=== PATIENT | male | born 1960 | race Caucasian/White ===

== ENCOUNTER 2018-02-23 10:30 | Observation (INO) ==
[2018-02-23 10:59] LABS: Bilirubin,Urine Negative (Negative); Blood,Urine Moderate (Negative); Clarity,Urine Clear (Clear); Color,Urine Yellow (Yellow); Glucose,Urine (UA) 250 mg/dL (Normal); Ketones,Urine Negative (Negative); Leukocyte Esterase,Urine Negative (Negative); Nitrite,Urine Negative (Negative); Protein,Urine Trace mg/dL (Neg-Trace); Specific Gravity,Urine 1.024 (1.010-1.025); Urobilinogen,Urine Normal (Normal)
[2018-02-23 11:03] LABS: Bacteria,Urine None Seen per hpf (None-Few); Hyaline Casts,Urine None Seen per lpf (None-Few); RBC,Urine 50-100 per hpf (0-3); Squamous Epithelial Cell,Urine Few per lpf (None-Few); WBC,Urine 0-3 per hpf (0-3)
[2018-02-23 11:09] LABS: Basophils # 0.1 K/mcL (0.0-0.2); Basophils % 0.5 %; Eosinophils % 0.2 %; Hematocrit 53.3 % (37.5-50.1); Hemoglobin 18.2 g/dL (12.9-16.9); Immature Granulocytes % 0.5 % (0-4); Lymphocytes # 1.6 K/mcL (0.6-4.6); Lymphocytes % 10.6 %; Mean Corpuscular HGB Conc 34.1 g/dL (31.6-35.5); Mean Corpuscular Hemoglobin 31.8 pg (28.0-33.3); Mean Platelet Volume 9.5 fL (9.4-12.4); Monocytes # 1.5 K/mcL (0.0-1.3); Monocytes % 10.4 %; Neutrophils # 11.5 K/mcL (1.6-8.9); Platelet Count 261 K/mcL (140-400); Red Blood Count 5.73 M/mcL (4.19-5.50); Red Cell Distribution Width 13.3 % (11.5-14.5); Segmented Neutrophils % 77.8 %
[2018-02-23 11:26] LABS: Alanine Aminotransferase 23 Units/L (7-52); Albumin 4.2 g/dL (3.5-5.7); Albumin/Globulin Ratio 1.6 (1.1-2.2); Alkaline Phosphatase 84 Units/L (34-104); Aspartate Amino Transferase 22 Units/L (13-39); BUN/Creatinine Ratio 11 (6-26); Bilirubin,Direct 0.1 mg/dL (0.0-0.2); Bilirubin,Indirect 0.7 mg/dL (0.0-1.2); Bilirubin,Total 0.8 mg/dL (0.3-1.0); Blood Urea Nitrogen 16 mg/dL (6-20); Calcium 9.2 mg/dL (8.6-10.3); Carbon Dioxide 25 mEq/L (23-29); Chloride 100 mEq/L (98-107); Globulin 2.6 g/dL (2.4-3.5); Glucose 150 mg/dL (70-105); Lipase 38 Units/L (11-82); Osmolality,Calculated 280 (280-300); Potassium 4.3 mEq/L (3.5-5.1); Sodium 133 mEq/L (136-145); Total Protein 6.8 g/dL (6.4-8.9); eGFR For African Americans > 60 (> 60); eGFR For Non-African Americans 51 (> 60)
[2018-02-23] MEDS ORDERED: Ondansetron 4 MG/2 ML VIAL IVP ONE (12:14)
[2018-02-23] MEDS ORDERED: Ketorolac 15 MG/ML VIAL IVP ONE (12:14)
[2018-02-23] MEDS ORDERED: *HR* FentaNYL (PF) 100 MCG/2 ML VIAL IVP ONE ×2 (12:15→12:51)
--- NOTE | 2018-02-23 12:16 | Emergency Department Note ---
Disposition Clinical Impression: Kidney stone Disposition: Admitted As Inpatient Condition: Good General Adult HPI - General Chief complaint: ED Abdominal Pain Stated complaint: LLQ Pain Time Seen by Provider: 02/23/18 12:10 Source: patient Limitations: no limitations - History of Present Illness Pain Scale: 6 - Related Data Home Medications Medication Instructions Recorded Confirmed Losartan Potassium [Cozaar] 50 mg PO DAILY 02/23/18 02/23/18 Allergies Allergy/AdvReac Type Severity Reaction Status Date / Time No Known Allergies Allergy Verified 02/23/18 10:35 Past Medical History - Past Medical History Medical history: Reports: hypertension, kidney stones Psychiatric history: Reports: no psych history - Social History Smoking Status: Former smoker Smokeless Tobacco Status: Yes Alcohol use: Reports: none, occasionally Drug use: Reports: none Physical Exam - General Limitations: no limitations General appearance: alert, in no apparent distress Course Vital Signs Temperature 98.5 F 02/23/18 10:32 Pulse Rate 73 02/23/18 10:32 Respiratory Rate 18 02/23/18 10:32 Blood Pressure 155/89 02/23/18 10:32 O2 Sat by Pulse Oximetry 98 02/23/18 10:32 Temperature 98.1 F 02/23/18 15:30 Pulse Rate 67 02/23/18 15:30 Respiratory Rate 18 02/23/18 15:30 Blood Pressure 136/71 02/23/18 15:30 O2 Sat by Pulse Oximetry 99 02/23/18 15:30 Oxygen Delivery Oxygen Delivery Room Air Medical Decision Making - Lab Data Result diagrams: 02/23/18 10:52 02/23/18 10:52 Lab Results 02/23/18 02/23/18 02/23/18 Range/Units 10:40 10:52 10:52 WBC 14.8 H (4.3-11.1) K/mcL RBC 5.73 H (4.19-5.50) M/mcL Hgb 18.2 H (12.9-16.9) g/dL Hct 53.3 H (37.5-50.1) % MCV 93.0 (83.0-100.0) fL MCH 31.8 (28.0-33.3) pg MCHC 34.1 (31.6-35.5) g/dL RDW 13.3 (11.5-14.5) % Plt Count 261 (140-400) K/mcL MPV 9.5 (9.4-12.4) fL Immature Gran % 0.5 (0-4) % Seg Neutrophils % 77.8 % Lymphocytes % 10.6 % Monocytes % 10.4 % Eosinophils % 0.2 % Basophils % 0.5 % Neutrophils # 11.5 H (1.6-8.9) K/mcL Lymphocytes # 1.6 (0.6-4.6) K/mcL Monocytes # 1.5 H (0.0-1.3) K/mcL Eosinophils # 0.0 (0.0-0.6) K/mcL Basophils # 0.1 (0.0-0.2) K/mcL Sodium 133 L (136-145) mEq/L Potassium 4.3 (3.5-5.1) mEq/L Chloride 100 (98-107) mEq/L Carbon Dioxide 25 (23-29) mEq/L BUN 16 (6-20) mg/dL Creatinine 1.41 H (0.70-1.30) mg/dL Est GFR ( Amer) > 60 (> 60) Est GFR (Non-Af Amer) 51 L (> 60) BUN/Creatinine Ratio 11 (6-26) Glucose 150 H (70-105) mg/dL Calculated Osmolality 280 (280-300) Calcium 9.2 (8.6-10.3) mg/dL Total Bilirubin 0.8 (0.3-1.0) mg/dL Direct Bilirubin 0.1 (0.0-0.2) mg/dL Indirect Bilirubin 0.7 (0.0-1.2) mg/dL AST 22 (13-39) Units/L ALT 23 (7-52) Units/L Alkaline Phosphatase 84 (34-104) Units/L Serum Total Protein 6.8 (6.4-8.9) g/dL Albumin 4.2 (3.5-5.7) g/dL Globulin 2.6 (2.4-3.5) g/dL Albumin/Globulin Ratio 1.6 (1.1-2.2) Lipase 38 (11-82) Units/L Urine Color Yellow (Yellow) Urine Clarity Clear (Clear) Urine pH 8.0 (5.0-8.0) pH Units Ur Specific [place] 1.024 (1.010-1.025) Urine Protein Trace (Neg-Trace) mg/dL Urine Glucose (UA) 250 H (Normal) mg/dL Urine Ketones Negative (Negative) mg/dL Urine Blood Moderate H (Negative) Urine Nitrite Negative (Negative) Urine Bilirubin Negative (Negative) Urine Urobilinogen Normal (Normal) mg/dL Ur Leukocyte Esterase Negative (Negative) Urine Microscopic RBC 50-100 H (0-3) per hpf Urine Microscopic WBC 0-3 (0-3) per hpf Ur Squamous Epith Cells Few (None-Few) per lpf Urine Bacteria None Seen (None-Few) per hpf Hyaline Casts None Seen (None-Few) per lpf Ur Culture Indicated? NO (NO) Attestation Statement - Attestation Attestation: I examined this patient and my medical decision-making was reviewed with the Resident Physician. I agree with the documented findings, disposition and treatment plan as described except to the extent set forth below. [id number] time provided Patient presents with left lower quadrant abdominal pain. He states he has a history of kidney stones 10-12 years ago which required urologic intervention. He does not appear in any acute distress on exam. Labs including CBC, metabolic profile, urinalysis reviewed by me which were drawn at triage
--- NOTE | 2018-02-23 13:09 | Emergency Department Note ---
Disposition Clinical Impression: Kidney stone Disposition: Admitted As Inpatient Condition: Good Referrals: Erasto Leach MD [Primary Care Provider] - Forms: ED Satisfaction Letter, Work/School Release Time of Disposition: 13:32 General Adult HPI - General Chief complaint: ED Abdominal Pain Stated complaint: LLQ Pain Time Seen by Provider: 02/23/18 12:10 Source: patient Mode of arrival: ambulatory Limitations: no limitations Nursing Notes Reviewed: Yes Vital Signs Reviewed: Yes - History of Present Illness HPI Narrative: 57-year-old male with significant past medical history of hypertension and kidney stones presenting to the emergency chief complaint of left flank pain. Patient states he has had intermittent left flank pain for the past 1-2 weeks. Acutely got worse over the past few days. Patient states he has had one previous kidney stone approximately 10 years ago. It needed surgical intervention with stent and was done by Dr. Rangel. Patient states no chest pain or shortness of breath. No fevers or urinary symptoms. Came in due to increased pain. States it does not radiate into his testicles or genitals. Pain Scale: 6 - Related Data Home Medications Medication Instructions Recorded Confirmed Indomethacin [Indocin] 50 mg PO TIDWM PRN 08/12/15 10/03/16 Previous Rx's Medication Instructions Recorded Amoxicillin/Clavulanate [Augmentin] 875 mg PO BID #20 tablet 10/03/16 Allergies Allergy/AdvReac Type Severity Reaction Status Date / Time No Known Allergies Allergy Verified 02/23/18 10:35 All systems ED: reviewed and negative except as stated. Gastrointestinal: Reports: abdominal pain Past Medical History - Past Medical History Attestation: Yes The following information was validated with the patient. Medical history: Reports: hypertension, kidney stones Psychiatric history: Reports: no psych history - Social History Smoking Status: Former smoker Smokeless Tobacco Status: Yes Alcohol use: Reports: none, occasionally Drug use: Reports: none Physical Exam - General Limitations: no limitations General appearance: alert, in no apparent distress - Head Head exam: atraumatic, normocephalic, normal inspection - Eye Eye exam: Present: normal appearance. Absent: scleral icterus, conjunctival injection - ENT ENT exam: normal exam, mucous membranes moist - Neck Neck exam: Present: normal inspection, full ROM. Absent: tenderness, meningismus - Chest Chest inspection: Present: normal inspection, symmetric chest wall rise. Absent : tenderness, rash - Respiratory Respiratory exam: Present: normal lung sounds bilaterally. Absent: respiratory distress, wheezes - Cardiovascular Cardiovascular exam: Present: regular rate, normal rhythm, normal heart sounds - Abdominal Exam Abdominal exam: Present: soft, tenderness (left flank). Absent: distention, guarding, rebound, rigidity Abdominal tenderness: Present: mild - Extremities Exam Extremities exam: Present: normal inspection, full ROM - Neurological Exam Neurological exam: Present: alert, oriented X3 - Psychiatric Psychiatric exam: Present: normal affect, normal mood - Skin Skin exam: Present: warm, intact Course Course Narrative: 57-year-old male presenting to the emergency Department chief complaint of left flank pain. Patient's laboratory analysis completed in triage shows elevated creatinine area also leukocytosis. Patient has history of kidney stones. We will obtain a CT of the abdomen and pelvis and provide pain control. Patient is alert and oriented 3 and room with stable vital signs. Patient agrees with this plan. Disposition pending results. - Reevaluation(s) Reevaluation #1: Patient's CT shows 6 mm stone in the proximal left ureter. Patient's pain has been extremely difficult to control the emergency department. We spoke with the urologist on-call Dr. Swain who agrees to accept the patient at this time for surgical intervention of his left sided kidney stone. Patient is alert and oriented 3 in the room with stable vital signs here he agrees with this plan. We will admit the patient at this time. Vital Signs Temperature 98.5 F 02/23/18 10:32 Pulse Rate 73 02/23/18 10:32 Respiratory Rate 18 02/23/18 10:32 Blood Pressure 155/89 02/23/18 10:32 O2 Sat by Pulse Oximetry 98 02/23/18 10:32 Temperature 98.5 F 02/23/18 10:32 Pulse Rate 73 02/23/18 10:32 Respiratory Rate 18 02/23/18 10:32 Blood Pressure 155/89 02/23/18 10:32 O2 Sat by Pulse Oximetry 98 02/23/18 10:32 Oxygen Delivery Oxygen Delivery Room Air Medical Decision Making - Lab Data Result diagrams: 02/23/18 10:52 02/23/18 10:52 Lab Results 02/23/18 02/23/18 02/23/18 Range/Units 10:40 10:52 10:52 WBC 14.8 H (4.3-11.1) K/mcL RBC 5.73 H (4.19-5.50) M/mcL Hgb 18.2 H (12.9-16.9) g/dL Hct 53.3 H (37.5-50.1) % MCV 93.0 (83.0-100.0) fL MCH 31.8 (28.0-33.3) pg MCHC 34.1 (31.6-35.5) g/dL RDW 13.3 (11.5-14.5) % Plt Count 261 (140-400) K/mcL MPV 9.5 (9.4-12.4) fL Immature Gran % 0.5 (0-4) % Seg Neutrophils % 77.8 % Lymphocytes % 10.6 % Monocytes % 10.4 % Eosinophils % 0.2 % Basophils % 0.5 % Neutrophils # 11.5 H (1.6-8.9) K/mcL Lymphocytes # 1.6 (0.6-4.6) K/mcL Monocytes # 1.5 H (0.0-1.3) K/mcL Eosinophils # 0.0 (0.0-0.6) K/mcL Basophils # 0.1 (0.0-0.2) K/mcL Sodium 133 L (136-145) mEq/L Potassium 4.3 (3.5-5.1) mEq/L Chloride 100 (98-107) mEq/L Carbon Dioxide 25 (23-29) mEq/L BUN 16 (6-20) mg/dL Creatinine 1.41 H (0.70-1.30) mg/dL Est GFR ( Amer) > 60 (> 60) Est GFR (Non-Af Amer) 51 L (> 60) BUN/Creatinine Ratio 11 (6-26) Glucose 150 H (70-105) mg/dL Calculated Osmolality 280 (280-300) Calcium 9.2 (8.6-10.3) mg/dL Total Bilirubin 0.8 (0.3-1.0) mg/dL Direct Bilirubin 0.1 (0.0-0.2) mg/dL Indirect Bilirubin 0.7 (0.0-1.2) mg/dL AST 22 (13-39) Units/L ALT 23 (7-52) Units/L Alkaline Phosphatase 84 (34-104) Units/L Serum Total Protein 6.8 (6.4-8.9) g/dL Albumin 4.2 (3.5-5.7) g/dL Globulin 2.6 (2.4-3.5) g/dL Albumin/Globulin Ratio 1.6 (1.1-2.2) Lipase 38 (11-82) Units/L Urine Color Yellow (Yellow) Urine Clarity Clear (Clear) Urine pH 8.0 (5.0-8.0) pH Units Ur Specific [place] 1.024 (1.010-1.025) Urine Protein Trace (Neg-Trace) mg/dL Urine Glucose (UA) 250 H (Normal) mg/dL Urine Ketones Negative (Negative) mg/dL Urine Blood Moderate H (Negative) Urine Nitrite Negative (Negative) Urine Bilirubin Negative (Negative) Urine Urobilinogen Normal (Normal) mg/dL Ur Leukocyte Esterase Negative (Negative) Urine Microscopic RBC 50-100 H (0-3) per hpf Urine Microscopic WBC 0-3 (0-3) per hpf Ur Squamous Epith Cells Few (None-Few) per lpf Urine Bacteria None Seen (None-Few) per hpf Hyaline Casts None Seen (None-Few) per lpf Ur Culture Indicated? NO (NO)
[2018-02-23] MEDS ORDERED: *HR* Promethazine 25 MG/ML VIAL IVP PRN (15:44)
[2018-02-23] MEDS ORDERED: Acetaminophen 325 MG TABLET PO PRN (15:44)
[2018-02-23] MEDS ORDERED: Ondansetron 4 MG/2 ML VIAL IVP PRN (15:44)
[2018-02-23] MEDS ORDERED: Ketorolac 15 MG/ML VIAL IVP PRN (15:44)
[2018-02-23] MEDS ORDERED: Naloxone 0.4 MG/ML INJ IVP PRN (15:44)
[2018-02-23] MEDS ORDERED: OXYCODONE Oral CONC 10 MG/0.5 ML ORAL.SYG SL PRN (15:46)
[2018-02-23] MEDS ORDERED: *HR* HYDROmorphone (PF) 1 MG/ML SYRINGE IVP ONE (15:47)
--- NOTE | 2018-02-23 17:45 | Urology History & Physical ---
Date of Encounter: 02/23/18 Time of Encounter: 17:43 Assessment and Plan (1) Kidney stone Current Visit: Yes Status: Acute 57-year-old man with a left proximal ureteral stone. He has been admitted for pain control. He understands there is a shortage of IV narcotic available. We will do our best to manage his pain with oral medications. He is interested in having a stone treated. If his pain still persists tomorrow, we will proceed with a left ureteroscopy, laser lithotripsy, and stent placement. He was informed of the risks of the procedure including but not limited to bleeding, infection, injury to other structures, need for further procedures, stent irritation, incomplete fragmentation, ureteral perforation, need for nephrostomy tube, need for open repair, risks unforeseen, and the risk of anesthesia. He is willing to proceed. History of Present Illness Chief complaint: Left flank pain HPI: Mr. Saleem is a 57 year old male who presents with a history of left flank pain. The pain has been severe and radiates to the groin. He has had nausea associated with it. He reports having a history of a kidney stone which was treated previously. The pain has been very sharp. He was seen in the emergency department and a CT scan was performed. This showed an obstructing 6 mm left proximal ureteral stone. He is admitted for pain control. Past Med Surg Social Fam HX - Past Medical History Medical history: hypertension, kidney stones Psychiatric history: no psych history - Social History Smoking Status: Former smoker Smokeless Tobacco Status: Yes Alcohol use: none, occasionally Drug use: none - Family History Father Hx Family Genitourinary Disorders: No Medications and Allergies Losartan Potassium [Cozaar] 50 mg PO DAILY 02/23/18 [History] 3 Allergy/AdvReac Type Severity Reaction Status Date / Time No Known Allergies Allergy Verified 02/23/18 10:35 Review of Systems - Constitutional no chills, no fever(s) - EENT Nose, mouth and throat: no dizziness - Cardiovascular no chest pain - Respiratory no dyspnea - Gastrointestinal nausea - Genitourinary flank pain, no hematuria - Musculoskeletal no back pain - Integumentary no erythema, no rash - Neurological no weakness - Psychiatric no suicidal ideation - Hematologic/Lymphatic no easy bleeding - Allergic/Immunologic no wheezing Exam Initial Vital Signs Temp Pulse Resp BP Pulse Ox 98.5 F 73 18 155/89 98 02/23/18 10:32 02/23/18 10:32 02/23/18 10:32 02/23/18 10:32 02/23/18 10:32 - General physical appearance Present: well developed, well nourished, no distress - Eyes Absent: icteric - ENT Present: normal nares - Neck Present: trachea midline - Respiratory Present: normal respiratory effort - Cardiovascular Cardiovascular exam IM: RRR - Abdomen Abdomen: Present: soft - Integumentary Present: no rash - Neurologic Present: normal coordination - Musculoskeletal Present: other (No edema) Urology Results - Labs 02/23/18 10:52 02/23/18 10:52 Abnormal lab results WBC 14.8 K/mcL (4.3-11.1) H 02/23/18 10:52 RBC 5.73 M/mcL (4.19-5.50) H 02/23/18 10:52 Hgb 18.2 g/dL (12.9-16.9) H 02/23/18 10:52 Hct 53.3 % (37.5-50.1) H 02/23/18 10:52 Neutrophils # 11.5 K/mcL (1.6-8.9) H 02/23/18 10:52 Monocytes # 1.5 K/mcL (0.0-1.3) H 02/23/18 10:52 Sodium 133 mEq/L (136-145) L 02/23/18 10:52 Creatinine 1.41 mg/dL (0.70-1.30) H 02/23/18 10:52 Est GFR (Non-Af Amer) 51 (> 60) L 02/23/18 10:52 Glucose 150 mg/dL (70-105) H 02/23/18 10:52 Urine Glucose (UA) 250 mg/dL (Normal) H 02/23/18 10:40 Urine Blood Moderate (Negative) H 02/23/18 10:40 Urine Microscopic RBC 50-100 per hpf (0-3) H 02/23/18 10:40 All other labs normal. - Imaging CT scan - abdomen: report reviewed, image reviewed CT scan - pelvis: report reviewed, image reviewed
[2018-02-23] MEDS: *HR* OxyCODONE/APAP 5/325 TABLET PO PRN (19:39)
--- NOTE | 2018-02-23 23:00 | Anesthesia Evaluation PreOp ---
<LiorjevonJackie - Last Filed: 02/24/18 00:10> Date of Encounter: 02/24/18 - Past History Planned Operation: L USE Cardiac History: HTN, Hyperlipidemia BED WORKER History: Denies Any Significant HX Other Medical History: Renal (stones) Anesthesia History: Past Anesthesia (bicep surgery, hemorrhoidectomies) Alcohol Use: none, occasionally Drug use: none Medications and Allergies Losartan Potassium [Cozaar] 50 mg PO DAILY 02/23/18 [History] 3 Allergy/AdvReac Type Severity Reaction Status Date / Time No Known Allergies Allergy Verified 02/23/18 10:35 - Meds/Allergy Pre-op Review Medications Reviewed: Yes Allergies Reviewed: Yes Beta Blockers on Current Med List: No Anesthesia Results - Labs 02/23/18 10:52 02/23/18 10:52 - Imaging Additional studies: TTE: Impressions: Normal LV systolic function, LVEF 55-60%. Normal left ventricular diastolic function. Normal right ventricular size and function. No significant valvular dysfunction. No evidence of pulmonary hypertension. Anesthesia Exam Last Vital Signs Temp 98.3 F 02/23/18 19:55 Pulse 77 02/23/18 19:55 Resp 16 02/23/18 19:55 BP 164/82 02/23/18 19:55 Pulse Ox 94 02/23/18 19:55 Weight: 84 kg - HEENT Pupil (Motor): Pupils equal, EOMI Mallampati: II Teeth: Normal Oral Opening: Greater than 3 - BED WORKER LOC: Oriented - Cardiac Rhythm: Regular Murmur: None - Pulmonary Breath Sounds: bilateral Clear Respiratory Effort: Symmetrical Anesthesia Assess/Plan ASA Score: 2 Modified [place] Scale for Level of Consciousness: Cooperative, oriented, and tranquil Anesthetic Plan: General Monitoring Plan: Standard Monitors Recovery Plan: PACU <Nargis Ramirez - Last Filed: 02/24/18 15:42> Date of Encounter: 02/24/18 Time of Encounter: 15:42 - Past History Anesthesia History: Past Anesthesia Anesthesia Results - Labs 02/24/18 04:54 02/24/18 04:54 Anesthesia Exam Vital Signs/O2 Sat, Most Current Temp Pulse Resp BP Pulse Ox 97.9 F 51 15 119/69 95 02/24/18 14:49 02/24/18 14:49 02/24/18 14:49 02/24/18 14:49 02/24/18 14:49 - HEENT Pupil (Motor): Pupils equal, EOMI Mallampati: III Teeth: Prosthesis (upper permanent caps) - BED WORKER LOC: Oriented BED WORKER Motor: Normal RUE, Normal LUE, Normal RLE, Normal LLE, Normal Face BED WORKER Sensory: Normal: RUE, LUE, RLE, LLE, Face - Cardiac Rhythm: Regular Murmur: None - Pulmonary Breath Sounds: bilateral Clear Respiratory Effort: Symmetrical Anesthesia Assess/Plan ASA Score: 2 Modified [place] Scale for Level of Consciousness: Cooperative, oriented, and tranquil Anesthetic Plan: General Monitoring Plan: Standard Monitors Recovery Plan: PACU
[2018-02-24] MEDS: *HR* OxyCODONE/APAP 5/325 TABLET PO PRN ×2 (04:02→12:31)
[2018-02-24 05:39] LABS: Basophils # 0.1 K/mcL (0.0-0.2); Basophils % 0.7 %; Eosinophils # 0.2 K/mcL (0.0-0.6); Eosinophils % 1.7 %; Hematocrit 47.6 % (37.5-50.1); Immature Granulocytes % 0.6 % (0-4); Lymphocytes # 2.7 K/mcL (0.6-4.6); Lymphocytes % 20.7 %; Mean Corpuscular HGB Conc 33.8 g/dL (31.6-35.5); Mean Corpuscular Hemoglobin 31.9 pg (28.0-33.3); Mean Corpuscular Volume 94.4 fL (83.0-100.0); Mean Platelet Volume 9.6 fL (9.4-12.4); Monocytes % 15.2 %; Neutrophils # 7.9 K/mcL (1.6-8.9); Platelet Count 222 K/mcL (140-400); Red Blood Count 5.04 M/mcL (4.19-5.50); Red Cell Distribution Width 13.7 % (11.5-14.5); Segmented Neutrophils % 61.1 %
[2018-02-24 05:47] LABS: Hemoglobin 16.1 g/dL (12.9-16.9)
[2018-02-24 05:57] LABS: Calcium 8.3 mg/dL (8.6-10.3); Potassium 4.5 mEq/L (3.5-5.1)
--- NOTE | 2018-02-24 06:49 | Urology Progress Note ---
Date of Encounter: 02/24/18 Time of Encounter: 06:48 - Assessment and Plan (1) Kidney stone Current Visit: Yes Status: Acute Assessment and plan: 57 year old man with left proximal ureteral stone. 1. Will start IVF. 2. D/c ketorolac. 3. Check KUB. 4. Plan for left ureteroscopy, laser lithotripsy, and stent placement later today. Progress Note Narrative: Pain control improved. Creatinine katlyn overnight. Voiding well. Objective Initial Vital Signs Temp Pulse Resp BP Pulse Ox 98.5 F 73 18 155/89 98 02/23/18 10:32 02/23/18 10:32 02/23/18 10:32 02/23/18 10:32 02/23/18 10:32 - General physical appearance Present: well developed, well nourished, no distress - Respiratory Present: normal respiratory effort - Abdomen Present: soft - Labs 02/24/18 04:54 02/24/18 04:54 Diabetes panel 02/24/18 Range/Units 04:54 Sodium 135 L (136-145) mEq/L Potassium 4.5 (3.5-5.1) mEq/L Chloride 102 (98-107) mEq/L Carbon Dioxide 26 (23-29) mEq/L BUN 18 (6-20) mg/dL Creatinine 2.00 H (0.70-1.30) mg/dL Glucose 87 (70-105) mg/dL Calcium 8.3 L (8.6-10.3) mg/dL Calcium panel 02/24/18 Range/Units 04:54 Calcium 8.3 L (8.6-10.3) mg/dL Pituitary panel 02/24/18 Range/Units 04:54 Sodium 135 L (136-145) mEq/L Potassium 4.5 (3.5-5.1) mEq/L Chloride 102 (98-107) mEq/L Carbon Dioxide 26 (23-29) mEq/L BUN 18 (6-20) mg/dL Creatinine 2.00 H (0.70-1.30) mg/dL Glucose 87 (70-105) mg/dL Calcium 8.3 L (8.6-10.3) mg/dL Adrenal panel 02/24/18 Range/Units 04:54 Sodium 135 L (136-145) mEq/L Potassium 4.5 (3.5-5.1) mEq/L Chloride 102 (98-107) mEq/L Carbon Dioxide 26 (23-29) mEq/L BUN 18 (6-20) mg/dL Creatinine 2.00 H (0.70-1.30) mg/dL Glucose 87 (70-105) mg/dL Calcium 8.3 L (8.6-10.3) mg/dL Consult Discharge Plan - Plan Referrals: Jonathon Swain MD [Partnered Physician] -
[2018-02-24] MEDS ORDERED: 0.9 % Sodium Chloride 1,000 ML IVC SCH ×2 (07:00→17:50)
[2018-02-24] MEDS ORDERED: *HR* Midazolam HCl 2 MG/2 ML VIAL ONE (15:42)
[2018-02-24] MEDS ORDERED: Lidocaine -MPF 2% 2 ML VIAL ONE (15:42)
[2018-02-24] MEDS ORDERED: *HR* FentaNYL (PF) 100 MCG/2 ML VIAL ONE (15:42)
[2018-02-24] MEDS ORDERED: *HR* Propofol 200 MG/20 ML VIAL IVP ONE (15:42)
[2018-02-24] MEDS ORDERED: CeFAZolin Syr 2,000MG/20 ML 2,000 MG/20 ML SYRINGE IVPB ONE (15:45)
[2018-02-24] MEDS ORDERED: Isovue-300 50 ML VIAL IVP ONE (16:12)
[2018-02-24] MEDS ORDERED: *HR* OxyCODONE Immed Rel 5 MG TABLET PO PRN (16:42)
[2018-02-24] MEDS ORDERED: Dexamethasone 4 MG/ML VIAL IVP ONE (16:42)
[2018-02-24] MEDS ORDERED: MORPHINE SUL Oral CONC 10 MG/0.5 ML ORAL.SYG SL PRN (16:42)
[2018-02-24] MEDS ORDERED: *HR* Promethazine 25 MG/ML VIAL IVP PRN ×2 (16:42→17:50)
[2018-02-24] MEDS ORDERED: EPHEDrine 50 MG/ML VIAL ONE (16:47)
[2018-02-24] MEDS ORDERED: Ondansetron 4 MG/2 ML VIAL ONE (16:54)
[2018-02-24] MEDS ORDERED: Dexamethasone 4 MG/ML VIAL ONE (16:54)
--- NOTE | 2018-02-24 17:15 | Operative Note ---
Date of procedure: 02/24/18 Pre-op diagnosis: Left ureteral stone Post-op diagnosis: same Procedure: Left ureteroscopy, laser lithotripsy, retrograde pyelogram, and left ureteral stent placement Implants: 4.8-Icelandic by 26 cm double-J stent Complications: None Anesthesia: GETA Surgeon: Jonathon Swain Was there an insurance underwriting assistant present: No Estimated blood loss (cc): 1 Specimen: none Condition: stable Disposition: PACU Procedure in Detail: Indications: Mr. Saleem is a 57-year-old male who has a history of nephrolithiasis. He has a left 6.3 mm proximal ureteral stone. He elected to undergo a left ureteroscopy , laser lithotripsy, and basket stone extraction with stent placement. He was aware of the risks of the procedure including but not limited to bleeding, infection, injury to other structures, need for further procedures, stent irritation, need for nephrostomy tube, need for open repair, risks otherwise unforeseen, and the risk of anesthesia. He is willing to proceed. Procedure in Detail: After informed consent was obtained the patient was brought back to the operating room and placed in supine position. A time out was performed. General anesthesia was administered and an LMA was placed. He was then placed in the lithotomy position. He was prepped and draped in the usual sterile fashion. Cystoscopy was performed. The anterior urethra was normal. There was no evidence of bladder tumors. The ureteral orifices were in the normal orthotopic position. There was no duplication of the ureteral orifices. A retrograde pyelogram was performed. The stone was seen in the proximal ureter and a filling defect was noted. The Zip wire was placed in the right ureteral orifice. The wire was then brought up into the kidney under fluoroscopic guidance. The distal ureter was dilated with the 8/10-Icelandic ureteral dilator. A sensor wire was placed and the dilator is removed. I passed the flexible ureteroscope over the sensor wire it did not move past the distal ureter. I then removed zip wire and I was still not able to get the scope into the distal ureter. The flex scope was removed. I passed the semirigid ureteroscope. The scope did move into the ureter and passed into the proximal ureter. The stone was not visualized. It had already migrated back into the renal pelvis. The semirigid ureteroscope was removed. I dilated the distal ureter with the 11-Icelandic portion of the sheath. This had difficulty moving past the distal ureter. Again I attempted to pass the flexible ureteroscope over the sensor wire, but it did not move into the ureter. I then removed the scope and replaced it down the urethra alongside the sensor wire. I was able to visualize the distal ureter and I could get the scope into the distal ureter. With significant manipulation I was able to pass the scope alongside the sensor wire up the ureter into the kidney under direct visual guidance. The stone was seen in the renal pelvis and it was irrigated into the upper pole calyx. There was a Codey's plaque also seen in the upper pole calyx. I then inserted a 200 micron laser fiber and fragmented the stones into small pieces. All stone fragments appeared to be less than 1 mm in size. The ureteroscope was then removed and the pullout ureteroscopy showed no injury to the ureter. A 4.8 Iceland[place] by 26cm JJ stent was then placed. The dangle strings were removed. The bladder was drained. The patient was then awakened from general anesthesia and brought to recovery room in good condition. All sponge, needle, and instrument counts were correct.
--- NOTE | 2018-02-24 17:20 | Discharge Summary ---
Orders not resulted at time of discharge: Pending orders 02/24/18 XR KUB [XR] Routine XR fluoroscopy <1 hr [XR] Routine Date of Encounter: 02/24/18 Time of Encounter: 17:18 - Discharge Diagnosis (1) Kidney stone Priority: Primary Status: Acute - Hospital Course Hospital course: Mr. Saleem is a 57 year old male presented with a history of left flank pain. A CT scan showed a 6.3 mm left proximal ureteral stone. He was admitted for pain control. On 02/24/2018 he underwent a left ureteroscopy, laser lithotripsy, and stent placement. He did well after surgery and was discharged home later that day. - Time Spent with Patient Total time spent providing and/or coordinating discharge services: Less than 30 minutes Labs on day of discharge: Labs from last 24 hours 02/24/18 02/24/18 02/24/18 05:37 04:54 04:54 WBC 13.0 H RBC 5.04 Hgb 16.1 D Hct 47.6 MCV 94.4 MCH 31.9 MCHC 33.8 RDW 13.7 Plt Count 222 MPV 9.6 Immature Gran % 0.6 Seg Neutrophils % 61.1 Lymphocytes % 20.7 Monocytes % 15.2 Eosinophils % 1.7 Basophils % 0.7 Neutrophils # 7.9 Lymphocytes # 2.7 Monocytes # 2.0 H Eosinophils # 0.2 Basophils # 0.1 Sodium 135 L Potassium 4.5 Chloride 102 Carbon Dioxide 26 BUN 18 Creatinine 2.00 H Est GFR ( Amer) 42 L Est GFR (Non-Af Amer) 34 L BUN/Creatinine Ratio 9 Glucose 87 POC Glucose 81 Calculated Osmolality 281 Calcium 8.3 L - Impressions ITS Impressions KUB X-Ray 02/24/18 06:29 IMPRESSION: Left ureteral stone is not well identified on today's study may be obscured due to overlying bowel gas. D/ / Yue Harrison MD / Yue Harrison MD Interpreting Provider: Yue Harrison MD - Discharge Medications Prescriptions: Docusate [Colace] 100 mg PO BID #60 capsule OxyCODONE/APAP 5/325 [Percocet 5/325 MG] 1 each PO Q6H PRN 5 Days #20 tablet PRN Reason: Moderate Pain Phenazopyridine HCl [Pyridium] 200 mg PO TIDAC #12 tab Home Medications: Losartan Potassium [Cozaar] 50 mg PO DAILY 02/23/18 [History] Docusate [Colace] 100 mg PO BID #60 capsule 02/24/18 [Rx] OxyCODONE/APAP 5/325 [Percocet 5/325 MG] 1 each PO Q6H PRN 5 Days #20 tablet 05/08 [Rx] Phenazopyridine HCl [Pyridium] 200 mg PO TIDAC #12 tab 02/24/18 [Rx] Allergies/Adverse Reactions: 3 Allergy/AdvReac Type Severity Reaction Status Date / Time No Known Allergies Allergy Verified 02/23/18 10:35 Date of admission: 02/23/18 14:26 Primary care physician: Erasto Leach MD Discharging clinician: Jonathon Swain Anticipated date of discharge: 02/24/18 Exam Initial Vital Signs Temp Pulse Resp BP Pulse Ox 98.5 F 73 18 155/89 98 02/23/18 10:32 02/23/18 10:32 02/23/18 10:32 02/23/18 10:32 02/23/18 10:32 - General physical appearance Present: well developed, well nourished, no distress - Eyes Absent: icteric - ENT Present: normal nares - Neck Present: trachea midline - Respiratory Present: normal respiratory effort - Cardiovascular Cardiovascular exam IM: RRR - Abdomen Abdomen: Present: soft - Patient Status Disposition: Home, Self-Care Condition: Good Functional capacity at discharge: independent ambulation Overall status at discharge: patient is progressing back to baseline - Discharge Instructions Follow Up With: Jonathon Swain MD [Partnered Physician] - (2 weeks for cystoscopy and stent removal.) Additional Instructions: 1. The patient can follow up in 1-2 weeks for a cystoscopy and stent removal. 2. He should expect to feel flank pain with voiding. 3. The patient should call for any fevers, chills, nausea, emesis, or uncontrolled pain. 4. Please provide a work excuse if necessary for up to 1 week off. - Diet and Activity Activity: increase activity as tolerated Diet: advance to your usual diet
[2018-02-24] MEDS ORDERED: Naloxone 0.4 MG/ML INJ IVP PRN (17:50)
[2018-02-24] MEDS ORDERED: Ondansetron 4 MG/2 ML VIAL IVP PRN (17:50)
[2018-02-24] MEDS ORDERED: Acetaminophen 325 MG TABLET PO PRN (17:50)
[2018-02-24] MEDS ORDERED: *HR* OxyCODONE/APAP 5/325 TABLET PO PRN (17:50)
[2018-02-24] MEDS ORDERED: OXYCODONE Oral CONC 10 MG/0.5 ML ORAL.SYG SL PRN (17:50)
--- NOTE | 2018-02-24 18:13 | Anesthesia Evaluation Post Op ---
Date of Encounter: 02/24/18 Time of Encounter: 18:11 - Vital Signs Vital Signs: Vital Signs/O2 Sat, Most Current Temp Pulse Resp BP Pulse Ox 99.2 F 59 16 136/88 97 02/24/18 17:50 02/24/18 17:50 02/24/18 17:50 02/24/18 17:50 02/24/18 17:50 - Lungs Lungs: Clear Ascult./Percussion - Airway Airway: Non-obstructed - Cardiovascular Regular Rate - Mental Status Mental Status: Alert & Oriented, Answers Appropriately - Pain Pain Scale: 0 Pain Scale used: Numeric (1 - 10) - Nausea Vomiting Nausea Vomiting: Not Present - Hydration Hydration: Ice chips - Discharge PostOp Status: Transfer Patient to floor Attestation: I have assessed this patient and find they meet discharge criteria.
[2018-02-24 18:20] VITALS: BP 148/96
== END 2018-02-24 18:53 | disposition home or self-care (01) ==
LOC: 3ANU 10:30 → EMEROO 10:30 → 3ANU 14:58
PROVIDERS: ADMIT Urology; ATTEND Urology

== ENCOUNTER 2019-08-17 08:34 | Inpatient (IN) ==
[2019-08-17] MEDS ORDERED: 0.9 % Sodium Chloride 1,000 ML IVC ONE ×2 (09:15→13:01)
[2019-08-17] MEDS ORDERED: Isovue-370 500 ML BOTTLE IVP ONE (09:19)
[2019-08-17] MEDS ORDERED: Isovue-370 500 ML BOTTLE PO ONE (09:56)
[2019-08-17 10:04] LABS: Hematocrit 49.8 % (37.5-50.1); Hemoglobin 17.1 g/dL (12.9-16.9); Immature Granulocytes % 0.5 % (0-4); Lymphocytes % 12.2 %; Mean Corpuscular HGB Conc 34.3 g/dL (31.6-35.5); Mean Corpuscular Hemoglobin 33.3 pg (28.0-33.3); Mean Corpuscular Volume 97.1 fL (83.0-100.0); Mean Platelet Volume 9.9 fL (9.4-12.4); Monocytes % 13.2 %; Platelet Count 240 K/mcL (140-400); Red Blood Count 5.13 M/mcL (4.19-5.50); Red Cell Distribution Width 12.2 % (11.5-14.5); Segmented Neutrophils % 73.3 %; White Blood Count 15.5 K/mcL (4.3-11.1)
[2019-08-17 10:05] LABS: Basophils # 0.1 K/mcL (0.0-0.2); Basophils % 0.3 %; Eosinophils # 0.1 K/mcL (0.0-0.6); Eosinophils % 0.5 %; Lymphocytes # 1.9 K/mcL (0.6-4.6); Monocytes # 2.1 K/mcL (0.0-1.3); Neutrophils # 11.4 K/mcL (1.6-8.9)
[2019-08-17 10:31] LABS: Alanine Aminotransferase 12 Units/L (7-52); Albumin 4.1 g/dL (3.5-5.7); Albumin/Globulin Ratio 1.3 (1.1-2.2); Alkaline Phosphatase 66 Units/L (34-104); Aspartate Amino Transferase 12 Units/L (13-39); BUN/Creatinine Ratio 13 (6-26); Bilirubin,Direct 0.2 mg/dL (0.0-0.2); Bilirubin,Indirect 1.2 mg/dL (0.0-1.2); Bilirubin,Total 1.4 mg/dL (0.3-1.0); Blood Urea Nitrogen 13 mg/dL (8-23); Calcium 9.1 mg/dL (8.6-10.3); Carbon Dioxide 26 mEq/L (23-29); Chloride 101 mEq/L (98-107); Glucose 126 mg/dL (70-105); Osmolality,Calculated 278 (280-300); Potassium 4.3 mEq/L (3.5-5.1); Sodium 133 mEq/L (136-145); Total Protein 7.2 g/dL (6.4-8.9); eGFR For African Americans > 60 (> 60); eGFR For Non-African Americans > 60 (> 60)
[2019-08-17 10:32] LABS: Globulin 3.1 g/dL (2.4-3.5); Lipase 26 Units/L (11-82)
--- NOTE | 2019-08-17 10:43 | Emergency Department Note ---
Disposition Clinical Impression: Perforation of sigmoid colon due to diverticulitis, Enlarged prostate Disposition: Admitted As Inpatient Condition: Good Referrals: Erasto Leach MD [Primary Care Provider] - Forms: ED Satisfaction Letter, Work/School Release Time of Disposition: 13:18 Abdominal Pain HPI - General Chief Complaint: ED Abdominal Pain Stated Complaint: Abdominal Pain Time Seen by Provider: 08/17/19 08:58 Source: patient, family Mode of arrival: private vehicle Limitations: no limitations Nursing Notes Reviewed: Yes Vital Signs Reviewed: Yes - History of Present Illness Pt Subjective Complaint: abdominal pain Onset (ago): day(s) Consistency: intermittent Location: LLQ Pain Severity: mild Pain Scale: 1 Quality: cramping Radiation: none Migration to: no migration Improves with: nothing Worsens with: nothing Context: recent surgery/procedure (Right biceps surgery 10 days ago) Associated symptoms: Reports: nausea, constipation, anorexia (Today). Denies: vomiting, diarrhea, fever, chills, dysuria, hematemesis, hematochezia, melena, hematuria, syncope Treatments prior to arrival: OTC medications (colace, enema yesterday) - Related Data Home Medications Medication Instructions Recorded Confirmed No Known Home Drugs 08/07/19 08/17/19 Allergies Allergy/AdvReac Type Severity Reaction Status Date / Time No Known Allergies Allergy Verified 02/23/18 10:35 All systems ED: reviewed and negative except as stated. Review of Systems: As Per HPI Constitutional: Denies: fever, chills, weakness Cardiovascular: Denies: chest pain, palpitations, dyspnea on exertion, orthopnea, edema, syncope Respiratory: Denies: cough, dyspnea, wheezes, hemoptysis, stridor, sputum production Gastrointestinal: Reports: as per HPI, abdominal pain, nausea, constipation. Denies: vomiting, diarrhea, hematemesis, melena, hematochezia Genitourinary: Denies: urgency, dysuria, frequency, hematuria Musculoskeletal: Denies: back pain, neck pain, joint swelling, arthralgia Neurological: Denies: headache, weakness, numbness, paresthesias, confusion Hematological/Lymphatic: Denies: easy bleeding, easy bruising Abdominal Pain PMH - Past Medical History Medical history: Reports: hypertension, kidney stones Male Surgical History: Reports: knee replacement, orthopedic, other Psychiatric history: Reports: no psych history - Social History Smoking status: Never smoker Alcohol use: Reports: occasionally Drug use: Reports: none Physical Exam - General Limitations: no limitations General appearance: alert, in no apparent distress - Head Head exam: atraumatic, normocephalic, normal inspection - Eye Eye exam: Present: normal appearance, PERRL, EOMI. Absent: scleral icterus, conjunctival injection, periorbital swelling - ENT ENT exam: mucous membranes dry - Neck Neck exam: Present: normal inspection, trachea midline. Absent: tenderness, meningismus - Respiratory Respiratory exam: Present: normal lung sounds bilaterally. Absent: respiratory distress, wheezes - Cardiovascular Cardiovascular exam: Present: regular rate, normal rhythm, normal heart sounds - Abdominal Exam Abdominal exam: Present: soft, tenderness, normal bowel sounds. Absent: distention, guarding, rebound, rigidity, organomegaly, trauma, incision, Cardoso's sign, Rovsing's sign, tenderness at McBurney's Point, ascites, mass, pulsatile mass, hernia, scar Abdominal tenderness: Present: LLQ, mild - Extremities Exam Extremities exam: Present: normal capillary refill, other (Well-healing surgical scar right upper arm) - Back Exam Back exam: Present: normal inspection - Neurological Exam Neurological exam: Present: alert, oriented X3 - Psychiatric Psychiatric exam: Present: normal affect, normal mood - Skin Skin exam: Present: warm, dry, intact, normal color Course Course Narrative: Patient to ED for evaluation of left lower quadrant abdominal pain. He states that he had right biceps surgery 10 days ago and is concerned that he may be constipated from the pain medication. He states that he only took the pain medication for a day and a half and that he was able to eat and drink normally the first few days. He did have a bowel movement. On day three. Since then he has had decreased appetite, intermittent crampy left lower quadrant abdominal pain and "constipation". He denies fever, chills or vomiting. No swelling or redness around the arm surgical wound. Labs, fluids and CT ordered. Concern is for possible small bowel obstruction. Labs show a leukocytosis, otherwise unremarkable. CT shows acute sigmoid diverticulitis with possible microperforation, no abscess formation. Also mentioned is enlargement of the prostate. Surgery paged for consult. Patient resting comfortably with no complaints at this time. He states that he is hungry and would like to eat. He is disappointed that he will have to remain npo, but is cooperative. He declines need for pain medication. - Consultations Consultation #1: Case discussed with Dr. Jennifer Saleem. She requests that we keep the patient nothing by mouth and have him placed on IIIa. Patient has been accepted for admission. Vital Signs Temperature 98.2 F 08/17/19 09:01 Pulse Rate 60 08/17/19 09:01 Respiratory Rate 16 08/17/19 09:01 Blood Pressure 137/83 08/17/19 09:01 O2 Sat by Pulse Oximetry 95 08/17/19 09:01 Temperature 98.2 F 08/17/19 09:01 Pulse Rate 60 08/17/19 12:46 Respiratory Rate 16 08/17/19 12:46 Blood Pressure 129/88 08/17/19 12:46 O2 Sat by Pulse Oximetry 98 08/17/19 12:46 Oxygen Delivery Oxygen Delivery Room Air Abdominal Pain - Lab Data Result diagrams: 08/17/19 09:43 08/17/19 09:43 Lab Results 08/17/19 08/17/19 08/17/19 Range/Units 09:43 09:43 09:43 WBC 15.5 H (4.3-11.1) K/mcL RBC 5.13 (4.19-5.50) M/mcL Hgb 17.1 H (12.9-16.9) g/dL Hct 49.8 (37.5-50.1) % MCV 97.1 (83.0-100.0) fL MCH 33.3 (28.0-33.3) pg MCHC 34.3 (31.6-35.5) g/dL RDW 12.2 (11.5-14.5) % Plt Count 240 (140-400) K/mcL MPV 9.9 (9.4-12.4) fL Immature Gran % 0.5 (0-4) % Seg Neutrophils % 73.3 % Lymphocytes % 12.2 % Monocytes % 13.2 % Eosinophils % 0.5 % Basophils % 0.3 % Neutrophils # 11.4 H (1.6-8.9) K/mcL Lymphocytes # 1.9 (0.6-4.6) K/mcL Monocytes # 2.1 H (0.0-1.3) K/mcL Eosinophils # 0.1 (0.0-0.6) K/mcL Basophils # 0.1 (0.0-0.2) K/mcL Sodium 133 L (136-145) mEq/L Potassium 4.3 (3.5-5.1) mEq/L Chloride 101 (98-107) mEq/L Carbon Dioxide 26 (23-29) mEq/L BUN 13 (8-23) mg/dL Creatinine 0.97 (0.70-1.30) mg/dL Est GFR ( Amer) > 60 (> 60) Est GFR (Non-Af Amer) > 60 (> 60) BUN/Creatinine Ratio 13 (6-26) Glucose 126 H (70-105) mg/dL Calculated Osmolality 278 L (280-300) Lactic Acid 1.8 (0.5-2.2) mmol/L Calcium 9.1 (8.6-10.3) mg/dL Total Bilirubin 1.4 H (0.3-1.0) mg/dL Direct Bilirubin 0.2 (0.0-0.2) mg/dL Indirect Bilirubin 1.2 (0.0-1.2) mg/dL AST 12 L (13-39) Units/L ALT 12 (7-52) Units/L Alkaline Phosphatase 66 (34-104) Units/L Serum Total Protein 7.2 (6.4-8.9) g/dL Albumin 4.1 (3.5-5.7) g/dL Globulin 3.1 (2.4-3.5) g/dL Albumin/Globulin Ratio 1.3 (1.1-2.2) Lipase 26 (11-82) Units/L Urine Color (Yellow) Urine Clarity (Clear) Urine pH (5.0-8.0) pH Units Ur Specific [place] (1.010-1.025) Urine Protein (Neg-Trace) mg/dL Urine Glucose (UA) (Normal) mg/dL Urine Ketones (Negative) mg/dL Urine Blood (Negative) Urine Nitrite (Negative) Urine Bilirubin (Negative) Urine Urobilinogen (Normal) mg/dL Ur Leukocyte Esterase (Negative) Ur Culture Indicated? (NO) 08/17/19 Range/Units 11:11 WBC (4.3-11.1) K/mcL RBC (4.19-5.50) M/mcL Hgb (12.9-16.9) g/dL Hct (37.5-50.1) % MCV (83.0-100.0) fL MCH (28.0-33.3) pg MCHC (31.6-35.5) g/dL RDW (11.5-14.5) % Plt Count (140-400) K/mcL MPV (9.4-12.4) fL Immature Gran % (0-4) % Seg Neutrophils % % Lymphocytes % % Monocytes % % Eosinophils % % Basophils % % Neutrophils # (1.6-8.9) K/mcL Lymphocytes # (0.6-4.6) K/mcL Monocytes # (0.0-1.3) K/mcL Eosinophils # (0.0-0.6) K/mcL Basophils # (0.0-0.2) K/mcL Sodium (136-145) mEq/L Potassium (3.5-5.1) mEq/L Chloride (98-107) mEq/L Carbon Dioxide (23-29) mEq/L BUN (8-23) mg/dL Creatinine (0.70-1.30) mg/dL Est GFR ( Amer) (> 60) Est GFR (Non-Af Amer) (> 60) BUN/Creatinine Ratio (6-26) Glucose (70-105) mg/dL Calculated Osmolality (280-300) Lactic Acid (0.5-2.2) mmol/L Calcium (8.6-10.3) mg/dL Total Bilirubin (0.3-1.0) mg/dL Direct Bilirubin (0.0-0.2) mg/dL Indirect Bilirubin (0.0-1.2) mg/dL AST (13-39) Units/L ALT (7-52) Units/L Alkaline Phosphatase (34-104) Units/L Serum Total Protein (6.4-8.9) g/dL Albumin (3.5-5.7) g/dL Globulin (2.4-3.5) g/dL Albumin/Globulin Ratio (1.1-2.2) Lipase (11-82) Units/L Urine Color Yellow (Yellow) Urine Clarity Clear (Clear) Urine pH 6.5 (5.0-8.0) pH Units Ur Specific [place] 1.007 L (1.010-1.025) Urine Protein Negative (Neg-Trace) mg/dL Urine Glucose (UA) Normal (Normal) mg/dL Urine Ketones Negative (Negative) mg/dL Urine Blood Negative (Negative) Urine Nitrite Negative (Negative) Urine Bilirubin Negative (Negative) Urine Urobilinogen Normal (Normal) mg/dL Ur Leukocyte Esterase Negative (Negative) Ur Culture Indicated? NO (NO)
[2019-08-17 11:26] LABS: Bilirubin,Urine Negative (Negative); Blood,Urine Negative (Negative); Clarity,Urine Clear (Clear); Color,Urine Yellow (Yellow); Glucose,Urine (UA) Normal (Normal); Ketones,Urine Negative (Negative); Leukocyte Esterase,Urine Negative (Negative); Nitrite,Urine Negative (Negative); PH,Urine 6.5 pH Units (5.0-8.0); Protein,Urine Negative (Neg-Trace); Specific Gravity,Urine 1.007 (1.010-1.025); Urobilinogen,Urine Normal (Normal)
[2019-08-17] MEDS ORDERED: MetroNIDAZOLE 500 MG/100 ML 500 MG/100 ML BAG IVPB ONE (12:46)
[2019-08-17] MEDS ORDERED: *HR* Promethazine 25 MG/ML VIAL IVP PRN (14:04)
[2019-08-17] MEDS ORDERED: Ondansetron 4 MG/2 ML VIAL IVP PRN (14:04)
--- NOTE | 2019-08-17 14:09 | Acute Care Surgery H&P ---
<Ragini Gagnon - Last Filed: 08/17/19 15:45> Date of Encounter: 08/17/19 Time of Encounter: 14:09 Assessment and Plan (1) Perforation of sigmoid colon due to diverticulitis Current Visit: Yes Status: Acute The assessment and plan as outlined above was discussed with the patient and/or family members who expressed understanding and agreement. All questions were answered. CT of the abdomen and pelvis is with sigmoid diverticulitis with microperforation. Patient continues to have involuntary guarding and is febrile at 102.4. We will treat supportively at this time. Plan: Continue supportive care and discomfort management while awaiting full return of bowel function Continue G.I. and DVT prophylaxis low-moderate risk, LINDA hose and hep SQ OOB to chair TID Amb TID Incentive spirometry 10 times every hour while awake Activity as tolerated Apply ice 20 minutes on 20 minutes off as needed IV Ofirmev x1 for fever PRN pain medications and antiemetics Repeat CT Tuesday or Tuesday pending clinical course (2) Enlarged prostate Current Visit: Yes Status: Chronic The assessment and plan as outlined above was discussed with the patient and/or family members who expressed understanding and agreement. All questions were answered. No acute urinary symptoms Strict I/O History of Present Illness Chief complaint: abdominal pain HPI: Mr. Saleem is a 59 year old male past medical history of kidney stones, hemorrhoidectomy, last colonoscopy 2011 (records unavailable) and most recent history of repair of bicep tendon approximately 10 days ago. Patient states prior to this point in time he had no changes in bowel habits, constipation, diarrhea, black, bloody, or tarry stool. He typically had a bowel movement 3 times a day, followed a high-protein and high-fiber diet. He reports his bicep surgery, taking a total of 3 pain pills and then a progressive feeling of upset stomach, constipation (for which he had taken milk magnesium and stool softeners without relief), and then abdominal pain that began 3 days ago. He states the pain had increased to intolerable and hence he presented to the emergency department. He sttates as long as he is still pain is tolerable, but if he moves it becomes sharp and 8/10. He endorses feeling fevered and having chills at home but he did not check his temperature. He denies headache, dizziness, chest pain, shortness of breath, urinary signs or symptoms, black, bloody, or tarry stool. His clinical course thus far has included a CT of the abdomen and pelvis which noted an ill-defined collection and inflammatory soft tissue suggestive of focal perforation and severe inflammation in the proximal sigmoid colon. His white blood cell count is elevated at 15.5. He will be admitted to the hospital for further workup and management. Past Med Surg Social Fam HX - Past Medical History Source: patient, old records reviewed Medical history: hypertension, kidney stones Additional medical history: Hemorrhoids. kidney stone Psychiatric history: no psych history - Past Surgical History Surgical History: knee replacement Additional surgical history: hemorrhoidectomy. left knee. right bicep. turp. kidney stones - Social History Smoking Status: Never smoker Smokeless Tobacco Status: Yes Alcohol use: occasionally Drug use: none Medications and Allergies No Known Home Drugs 08/07/19 [History] Allergy/AdvReac Type Severity Reaction Status Date / Time No Known Allergies Allergy Verified 02/23/18 10:35 Review of Systems All systems PM: reviewed and no additional remarkable complaints except as stat ed All systems PM: The remainder of the systems were reviewed and are negative General Surgery Exam Initial Vital Signs Temp Pulse Resp BP Pulse Ox 98.2 F 60 16 137/83 95 08/17/19 09:01 08/17/19 09:01 08/17/19 09:01 08/17/19 09:01 08/17/19 09:01 Vital Signs Temp Pulse Resp BP Pulse Ox 08/17/19 15:25 102.4 F H 49 16 125/77 97 08/17/19 14:08 53 16 132/78 97 08/17/19 12:46 60 16 129/88 98 08/17/19 11:38 60 16 148/89 98 08/17/19 09:01 98.2 F 60 16 137/83 95 Intake and Output 08/16/19 08/17/19 08/17/19 23:59 07:59 15:59 Intake Total 1200 / 1200 Output Total 0 / 0 Balance 1200 / 1200 Intake: IV Fluids 1200 / 1200 0.9 % Sodium Chloride 1,000 ML 1000 / 1000 @ 999 mls/hr IVC .Q1H1M ONE Rx# :[id number] Cipro Premix 400 MG/200 ML 400 200 / 200 mg In 200 ml @ 200 mls/hr IVPB ONCE ONE Rx#:[id number] Output: Urine 0 / 0 Other: Weight 78.018 kg Patient Weight 08/17/19 23:59 Weight 78.018 kg VITAL SIGNS: Reviewed. See [facility] GENERAL: In no apparent distress. HEENT: Normocephalic, atraumatic, pupils are equal and reactive, extraocular motions intact, oropharynx is pink and moist, there is no neck adenopathy or JVD noted. CHEST/RESPIRATORY: The thorax is free from signs of trauma. Lung sounds: clear to auscultation, normal respiratory effort CARDIAC: Regular rate and rhythm. Normal S1 and S2, without murmurs, gallops, or rubs. VASCULAR: No Edema. 2+ peripheral pulses. ABDOMEN: soft, hypoactive bowel sounds, involuntary guarding, tenderness to palpation left lower and pelvic area MUSCULOSKELETAL: Good range of motion of all major joints. Extremities without clubbing, cyanosis or edema. NEUROLOGIC EXAM: Alert and oriented x 3. Speech normal. Follows commands. PSYCHIATRIC: Mood normal. SKIN: No rash or lesions. Results - Labs 08/17/19 09:43 08/17/19 09:43 Abnormal lab results WBC 15.5 K/mcL (4.3-11.1) H 08/17/19 09:43 Hgb 17.1 g/dL (12.9-16.9) H 08/17/19 09:43 Neutrophils # 11.4 K/mcL (1.6-8.9) H 08/17/19 09:43 Monocytes # 2.1 K/mcL (0.0-1.3) H 08/17/19 09:43 Sodium 133 mEq/L (136-145) L 08/17/19 09:43 Glucose 126 mg/dL (70-105) H 08/17/19 09:43 Calculated Osmolality 278 (280-300) L 08/17/19 09:43 Total Bilirubin 1.4 mg/dL (0.3-1.0) H 08/17/19 09:43 AST 12 Units/L (13-39) L 08/17/19 09:43 Ur Specific [place] 1.007 (1.010-1.025) L 08/17/19 11:11 Diabetes panel 08/17/19 Range/Units 09:43 Sodium 133 L (136-145) mEq/L Potassium 4.3 (3.5-5.1) mEq/L Chloride 101 (98-107) mEq/L Carbon Dioxide 26 (23-29) mEq/L BUN 13 (8-23) mg/dL Creatinine 0.97 (0.70-1.30) mg/dL Glucose 126 H (70-105) mg/dL Calcium 9.1 (8.6-10.3) mg/dL AST 12 L (13-39) Units/L ALT 12 (7-52) Units/L Alkaline Phosphatase 66 (34-104) Units/L Albumin 4.1 (3.5-5.7) g/dL Calcium panel 08/17/19 Range/Units 09:43 Calcium 9.1 (8.6-10.3) mg/dL Albumin 4.1 (3.5-5.7) g/dL Pituitary panel 08/17/19 Range/Units 09:43 Sodium 133 L (136-145) mEq/L Potassium 4.3 (3.5-5.1) mEq/L Chloride 101 (98-107) mEq/L Carbon Dioxide 26 (23-29) mEq/L BUN 13 (8-23) mg/dL Creatinine 0.97 (0.70-1.30) mg/dL Glucose 126 H (70-105) mg/dL Calcium 9.1 (8.6-10.3) mg/dL Adrenal panel 08/17/19 Range/Units 09:43 Sodium 133 L (136-145) mEq/L Potassium 4.3 (3.5-5.1) mEq/L Chloride 101 (98-107) mEq/L Carbon Dioxide 26 (23-29) mEq/L BUN 13 (8-23) mg/dL Creatinine 0.97 (0.70-1.30) mg/dL Glucose 126 H (70-105) mg/dL Calcium 9.1 (8.6-10.3) mg/dL Total Bilirubin 1.4 H (0.3-1.0) mg/dL AST 12 L (13-39) Units/L ALT 12 (7-52) Units/L Alkaline Phosphatase 66 (34-104) Units/L Albumin 4.1 (3.5-5.7) g/dL All other labs normal. - Imaging CT scan - abdomen: report reviewed, image reviewed CT scan - pelvis: report reviewed, image reviewed <Miranda Stokes F - Last Filed: 08/17/19 17:39> Date of Encounter: 08/17/19 History of Present Illness HPI: Mr. Saleem is a 59 year old male Review of Systems All systems PM: The remainder of the systems were reviewed and are negative General Surgery Exam Initial Vital Signs Temp Pulse Resp BP Pulse Ox 98.2 F 60 16 137/83 95 08/17/19 09:01 08/17/19 09:01 08/17/19 09:01 08/17/19 09:01 08/17/19 09:01 Results - Labs 08/17/19 09:43 08/17/19 09:43 Abnormal lab results WBC 15.5 K/mcL (4.3-11.1) H 08/17/19 09:43 Hgb 17.1 g/dL (12.9-16.9) H 08/17/19 09:43 Neutrophils # 11.4 K/mcL (1.6-8.9) H 08/17/19 09:43 Monocytes # 2.1 K/mcL (0.0-1.3) H 08/17/19 09:43 Sodium 133 mEq/L (136-145) L 08/17/19 09:43 Glucose 126 mg/dL (70-105) H 08/17/19 09:43 Calculated Osmolality 278 (280-300) L 08/17/19 09:43 Total Bilirubin 1.4 mg/dL (0.3-1.0) H 08/17/19 09:43 AST 12 Units/L (13-39) L 08/17/19 09:43 Ur Specific [place] 1.007 (1.010-1.025) L 08/17/19 11:11 Diabetes panel 08/17/19 Range/Units 09:43 Sodium 133 L (136-145) mEq/L Potassium 4.3 (3.5-5.1) mEq/L Chloride 101 (98-107) mEq/L Carbon Dioxide 26 (23-29) mEq/L BUN 13 (8-23) mg/dL Creatinine 0.97 (0.70-1.30) mg/dL Glucose 126 H (70-105) mg/dL Calcium 9.1 (8.6-10.3) mg/dL AST 12 L (13-39) Units/L ALT 12 (7-52) Units/L Alkaline Phosphatase 66 (34-104) Units/L Albumin 4.1 (3.5-5.7) g/dL Calcium panel 08/17/19 Range/Units 09:43 Calcium 9.1 (8.6-10.3) mg/dL Albumin 4.1 (3.5-5.7) g/dL Pituitary panel 08/17/19 Range/Units 09:43 Sodium 133 L (136-145) mEq/L Potassium 4.3 (3.5-5.1) mEq/L Chloride 101 (98-107) mEq/L Carbon Dioxide 26 (23-29) mEq/L BUN 13 (8-23) mg/dL Creatinine 0.97 (0.70-1.30) mg/dL Glucose 126 H (70-105) mg/dL Calcium 9.1 (8.6-10.3) mg/dL Adrenal panel 08/17/19 Range/Units 09:43 Sodium 133 L (136-145) mEq/L Potassium 4.3 (3.5-5.1) mEq/L Chloride 101 (98-107) mEq/L Carbon Dioxide 26 (23-29) mEq/L BUN 13 (8-23) mg/dL Creatinine 0.97 (0.70-1.30) mg/dL Glucose 126 H (70-105) mg/dL Calcium 9.1 (8.6-10.3) mg/dL Total Bilirubin 1.4 H (0.3-1.0) mg/dL AST 12 L (13-39) Units/L ALT 12 (7-52) Units/L Alkaline Phosphatase 66 (34-104) Units/L Albumin 4.1 (3.5-5.7) g/dL All other labs normal. - Attending Attestation I examined this patient and my medical decision-making was reviewed with the ENVIRONMENTAL COMPLIANCE ENGINEER. I agree with the documented findings, disposition and treatment plan as described to the extent set forth below. Pt admitted to [facility] for acute abdominal pain. Pt is found to have acute diverticulitis with microperforation on CT. Pt is admitted for NPO, bowel rest, IVF and IV abx. CBC in am. Will follow closely.
[2019-08-17] MEDS ORDERED: Ketorolac 15 MG/ML VIAL IVP PRN (15:44)
[2019-08-17] MEDS ORDERED: Saliva Stimulant 100ml BOTTLE PO PRN (15:54)
[2019-08-17] MEDS: Pantoprazole 40 MG VIAL IVP SCH (16:16)
[2019-08-17] MEDS: 0.9 % Sodium Chloride 1,000 ML IVC SCH (16:17)
[2019-08-17] MEDS: Acetaminophen IV 1,000 MG/100 ML INFUS..BTL IVPB ONE ×2 (17:04→17:09)
[2019-08-17] MEDS: *HR* Heparin 5,000 UNIT/ML VIAL SQ SCH (18:34)
[2019-08-17] MEDS: MetroNIDAZOLE 500 MG/100 ML 500 MG/100 ML BAG IVPB SCH (23:40)
[2019-08-18] MEDS: 0.9 % Sodium Chloride 1,000 ML IVC SCH ×3 (01:00→17:30)
[2019-08-18] MEDS: *HR* Heparin 5,000 UNIT/ML VIAL SQ SCH ×2 (05:48→17:22)
[2019-08-18] MEDS: MetroNIDAZOLE 500 MG/100 ML 500 MG/100 ML BAG IVPB SCH ×3 (08:57→23:59)
[2019-08-18] MEDS: Pantoprazole 40 MG VIAL IVP SCH (08:57)
[2019-08-18 11:22] LABS: Basophils % 0.6 %; Eosinophils # 0.2 K/mcL (0.0-0.6); Eosinophils % 2.2 %; Hematocrit 46.2 % (37.5-50.1); Hemoglobin 15.8 g/dL (12.9-16.9); Immature Granulocytes % 0.4 % (0-4); Lymphocytes # 1.6 K/mcL (0.6-4.6); Lymphocytes % 23.7 %; Mean Corpuscular HGB Conc 34.2 g/dL (31.6-35.5); Mean Corpuscular Hemoglobin 33.3 pg (28.0-33.3); Mean Corpuscular Volume 97.5 fL (83.0-100.0); Mean Platelet Volume 9.7 fL (9.4-12.4); Monocytes # 0.9 K/mcL (0.0-1.3); Monocytes % 13.7 %; Platelet Count 204 K/mcL (140-400); Red Blood Count 4.74 M/mcL (4.19-5.50); Red Cell Distribution Width 12.2 % (11.5-14.5); Segmented Neutrophils % 59.4 %; White Blood Count 6.8 K/mcL (4.3-11.1)
[2019-08-18 11:42] LABS: BUN/Creatinine Ratio 13 (6-26); Blood Urea Nitrogen 12 mg/dL (8-23); Calcium 8.1 mg/dL (8.6-10.3); Carbon Dioxide 23 mEq/L (23-29); Chloride 111 mEq/L (98-107); Glucose 87 mg/dL (70-105); Magnesium 2.1 mg/dL (1.6-2.6); Osmolality,Calculated 281 (280-300); Phosphorous 2.6 mg/dL (2.7-4.5); Potassium 4.1 mEq/L (3.5-5.1); Sodium 136 mEq/L (136-145); eGFR For African Americans > 60 (> 60); eGFR For Non-African Americans > 60 (> 60)
--- NOTE | 2019-08-18 12:20 | AcuteCareSurgery Progress Note ---
Date of Encounter: 08/18/19 Time of Encounter: 12:00 - Assessment and Plan (1) Perforation of sigmoid colon due to diverticulitis Current Visit: Yes Status: Acute Microperforation. Pt responding well to therapy with bowel rest and IV abx. WBC wnl. Continue IV abx. Start clear liquid diet. Subjective Patient reports: no new complaints, feels better, pain is less, flatus, bowel movement, afebrile Objective Vital Signs - Last 8 Hours Temp Pulse Resp BP Pulse Ox 08/18/19 12:00 98.5 F 101 20 135/84 97 08/18/19 07:40 98.0 F 87 15 136/84 96 Intake and Output 08/17/19 08/18/19 08/18/19 23:59 07:59 15:59 Intake Total 1400 / 2600 1100 / 1100 0 / 1100 Output Total 625 / 625 1150 / 1750 600 / 1750 Balance 775 / 1975 -50 / -650 -600 / -650 Intake: IV Fluids 1400 / 2600 1100 / 1100 0.9 % Sodium Chloride 1,000 ML 1000 / 1000 1000 / 1000 @ 125 mls/hr IVC .Q8H [facility] [place] Rx#: [id number] Ofirmev 1,000 mg/100 ml 1,000 100 / 100 mg In 100 ml @ 400 mls/hr IVPB ONCE ONE Rx#:[id number] Cipro Premix 400 MG/200 ML 400 200 / 200 mg In 200 ml @ 200 mls/hr IVPB Q12H [facility] [place] Rx#:[id number] Flagyl Premix 500 MG/100 ML 500 100 / 100 100 / 100 mg In 100 ml @ 100 mls/hr IVPB Q8HR [facility] [place] Rx#:[id number] Oral 0 / 0 0 / 0 Output: Urine 625 / 625 1150 / 1750 600 / 1750 Other: Meal Breakfast Percent of Meal Consumed 0% Weight 78.7 kg Blood Glucose* 77 84 75 Patient Weight 08/18/19 23:59 Weight 78.7 kg - General physical appearance no distress, no pain - Eyes PERRL, normal ocular movement - ENT normal mucosa, no congestion - Neck Neck exam: trachea midline, no venous distension - Respiratory normal respiratory effort, clear to auscultation - Cardiovascular Cardiovascular exam: Present: RRR. Absent: JVD - Abdomen Abdomen: Present: bowel sounds present, soft, non tender - Neurologic CN 2-12 grossly intact, normal coordination - Musculoskeletal normal posture - Psychiatric oriented to time, oriented to person, oriented to place - Labs 08/18/19 11:02 08/18/19 11:02 Diabetes panel 08/18/19 Range/Units 11:02 Sodium 136 (136-145) mEq/L Potassium 4.1 (3.5-5.1) mEq/L Chloride 111 H (98-107) mEq/L Carbon Dioxide 23 (23-29) mEq/L BUN 12 (8-23) mg/dL Creatinine 0.92 (0.70-1.30) mg/dL Glucose 87 (70-105) mg/dL Calcium 8.1 L (8.6-10.3) mg/dL Calcium panel 08/18/19 Range/Units 11:02 Calcium 8.1 L (8.6-10.3) mg/dL Phosphorus 2.6 L (2.7-4.5) mg/dL Pituitary panel 08/18/19 Range/Units 11:02 Sodium 136 (136-145) mEq/L Potassium 4.1 (3.5-5.1) mEq/L Chloride 111 H (98-107) mEq/L Carbon Dioxide 23 (23-29) mEq/L BUN 12 (8-23) mg/dL Creatinine 0.92 (0.70-1.30) mg/dL Glucose 87 (70-105) mg/dL Calcium 8.1 L (8.6-10.3) mg/dL Adrenal panel 08/18/19 Range/Units 11:02 Sodium 136 (136-145) mEq/L Potassium 4.1 (3.5-5.1) mEq/L Chloride 111 H (98-107) mEq/L Carbon Dioxide 23 (23-29) mEq/L BUN 12 (8-23) mg/dL Creatinine 0.92 (0.70-1.30) mg/dL Glucose 87 (70-105) mg/dL Calcium 8.1 L (8.6-10.3) mg/dL - VTE Documentation of Mechanical Device: Graduated compression elastic hosiery Consult Discharge Plan - Plan Referrals: Erasto Leach MD [Primary Care Provider] -
[2019-08-19] MEDS: 0.9 % Sodium Chloride 1,000 ML IVC SCH
[2019-08-19] MEDS: *HR* Heparin 5,000 UNIT/ML VIAL SQ SCH (05:25)
[2019-08-19 08:07] LABS: Basophils % 0.7 %; Eosinophils # 0.2 K/mcL (0.0-0.6); Eosinophils % 2.6 %; Hematocrit 44.4 % (37.5-50.1); Hemoglobin 15.2 g/dL (12.9-16.9); Immature Granulocytes % 0.8 % (0-4); Lymphocytes # 1.5 K/mcL (0.6-4.6); Lymphocytes % 24.6 %; Mean Corpuscular HGB Conc 34.2 g/dL (31.6-35.5); Mean Corpuscular Hemoglobin 32.8 pg (28.0-33.3); Mean Corpuscular Volume 95.7 fL (83.0-100.0); Mean Platelet Volume 10.5 fL (9.4-12.4); Monocytes # 0.7 K/mcL (0.0-1.3); Monocytes % 12.2 %; Neutrophils # 3.6 K/mcL (1.6-8.9); Platelet Count 220 K/mcL (140-400); Red Blood Count 4.64 M/mcL (4.19-5.50); Red Cell Distribution Width 12.1 % (11.5-14.5); Segmented Neutrophils % 59.1 %; White Blood Count 6.1 K/mcL (4.3-11.1)
[2019-08-19] MEDS: Pantoprazole 40 MG VIAL IVP SCH (08:17)
[2019-08-19] MEDS: MetroNIDAZOLE 500 MG/100 ML 500 MG/100 ML BAG IVPB SCH (08:18)
[2019-08-19 08:29] LABS: BUN/Creatinine Ratio 11 (6-26); Blood Urea Nitrogen 11 mg/dL (8-23); Calcium 8.2 mg/dL (8.6-10.3); Carbon Dioxide 25 mEq/L (23-29); Chloride 109 mEq/L (98-107); Glucose 93 mg/dL (70-105); Osmolality,Calculated 281 (280-300); Phosphorous 2.7 mg/dL (2.7-4.5); Sodium 136 mEq/L (136-145); eGFR For African Americans > 60 (> 60); eGFR For Non-African Americans > 60 (> 60)
[2019-08-19 10:45] VITALS: BP 117/68
--- NOTE | 2019-08-19 12:22 | Discharge Summary ---
Date of Encounter: 08/19/19 Time of Encounter: 07:00 - Discharge Diagnosis (1) Perforation of sigmoid colon due to diverticulitis Priority: Primary Status: Acute General Surgery Exam Initial Vital Signs Temp Pulse Resp BP Pulse Ox 98.2 F 60 16 137/83 95 08/17/19 09:01 08/17/19 09:01 08/17/19 09:01 08/17/19 09:01 08/17/19 09:01 - General physical appearance well developed, well nourished, no distress, no pain. negative: jaundice - Eyes PERRL, normal ocular movement. negative: icteric - ENT no congestion, dry mucosa. negative: nasal discharge - Neck no masses, trachea midline, no lymphadectomy, no venous distension - Respiratory normal respiratory effort, clear to auscultation - Cardiovascular Cardiovascular exam: Present: RRR. Absent: JVD - Abdomen Abdomen general surgery: Present: bowel sounds present, soft, tender. Absent: distended, guarding, rebound Abdominal Tenderness: Present: LLQ - Genitourinary Present: normal penis with no external lesions - Integumentary Integumentary general surgery: Present: warm and dry - Neurologic Present: CN 2-12 grossly intact, normal coordination - Musculoskeletal Present: normal posture - Psychiatric Psychiatric general surgery: Present: A&Ox3, appropriate - Hospital Course Hospital course: Mr. Saleem is a 59 year old male - Time Spent with Patient Total time spent providing and/or coordinating discharge services: Greater than 30 minutes - Discharge Medications Prescriptions: New Ciprofloxacin HCl [Cipro] 500 mg PO BID 14 Days #28 tablet metroNIDAZOLE [Flagyl] 500 mg PO TID #42 tablet Oxycodone HCl/Acetaminophen [Percocet 5-325 mg Tablet] 1 each PO Q4HR 7 Days #15 tablet Ondansetron HCl [Zofran] 8 mg PO Q8HR PRN #12 tab PRN Reason: Nausea Continued Testosterone Cypionate [Depo-Testosterone] 200 mg IM Q2W Home Medications: Testosterone Cypionate [Depo-Testosterone] 200 mg IM Q2W 08/17/19 [History] Ciprofloxacin HCl [Cipro] 500 mg PO BID 14 Days #28 tablet 08/19/19 [Rx] Ondansetron HCl [Zofran] 8 mg PO Q8HR PRN #12 tab 08/19/19 [Rx] Oxycodone HCl/Acetaminophen [Percocet 5-325 mg Tablet] 1 each PO Q4HR 7 Days #15 tablet 08/19/19 [Rx] metroNIDAZOLE [Flagyl] 500 mg PO TID #42 tablet 08/19/19 [Rx] Allergies/Adverse Reactions: Allergy/AdvReac Type Severity Reaction Status Date / Time No Known Allergies Allergy Verified 08/17/19 22:04 Date of admission: 08/17/19 14:12 Primary care physician: Erasto Leach MD Discharging clinician: Miranda Saleem Anticipated date of discharge: 08/19/19 Labs on day of discharge: Labs from last 24 hours 08/19/19 08/19/19 08/18/19 07:07 07:07 05:55 WBC 6.1 RBC 4.64 Hgb 15.2 Hct 44.4 MCV 95.7 MCH 32.8 MCHC 34.2 RDW 12.1 Plt Count 220 MPV 10.5 Immature Gran % 0.8 Seg Neutrophils % 59.1 Lymphocytes % 24.6 Monocytes % 12.2 Eosinophils % 2.6 Basophils % 0.7 Neutrophils # 3.6 Lymphocytes # 1.5 Monocytes # 0.7 Eosinophils # 0.2 Basophils # 0.0 Sodium 136 Potassium 4.0 Chloride 109 H Carbon Dioxide 25 BUN 11 Creatinine 0.96 Est GFR ( Amer) > 60 Est GFR (Non-Af Amer) > 60 BUN/Creatinine Ratio 11 Glucose 93 POC Glucose 84 Calculated Osmolality 281 Calcium 8.2 L Phosphorus 2.7 Magnesium 2.0 08/18/19 00:08 WBC RBC Hgb Hct MCV MCH MCHC RDW Plt Count MPV Immature Gran % Seg Neutrophils % Lymphocytes % Monocytes % Eosinophils % Basophils % Neutrophils # Lymphocytes # Monocytes # Eosinophils # Basophils # Sodium Potassium Chloride Carbon Dioxide BUN Creatinine Est GFR ( Amer) Est GFR (Non-Af Amer) BUN/Creatinine Ratio Glucose POC Glucose 79 Calculated Osmolality Calcium Phosphorus Magnesium - Impressions ITS Impressions Abdomen/Pelvis CT 08/17/19 11:36 IMPRESSION: 1. Severe inflammation in the proximal sigmoid colon that likely represents acute diverticulitis. Suspected micro perforation of a diverticulum with a small focus of inflammatory phlegmon. No defined abscess. 2. Nodular enlargement of the prostate contributing to mass effect upon the base of the bladder. Appearance is stable. Correlate with urologic history. D/ / Zachary Jeffrey MD / Zachary Jeffrey MD Interpreting Provider: Zachary Jeffrey MD - Patient Status Disposition: Home, Self-Care Condition: Good Functional capacity at discharge: independent ambulation Overall status at discharge: patient is progressing back to baseline - Discharge Instructions Instructions: Diverticulitis (DC), Low Fiber Diet (GEN) Follow Up With: Erasto Leach MD [Primary Care Provider] - - Diet and Activity Activity: increase activity as tolerated Diet: other
== END 2019-08-19 13:00 | disposition home or self-care (01) | DRG 392 ==
LOC: 3ANU 08:34 → EMEROOARM 08:34 → 3ANU 14:40
PROVIDERS: ADMIT Surgery; ATTEND Surgery